=== PATIENT | male | born 1965 | race Caucasian/White ===

== ENCOUNTER 2022-10-25 01:14 | Day surgery (SDC) | payer OTHER, SELFPAY ==
[2022-10-12 09:32] VITALS: BMI 25.1
[2022-10-25 08:35] VITALS: BP 136/78; PULSE 105; RESP 18; TEMP 36.2; O2SAT 99; BMI 24.9
[2022-10-25] MEDS: LACTATED RINGERS 1,000 ML 150 ML IV CONT (08:44)
--- NOTE | 2022-10-25 08:56 | P.PNAN_ITS ---
Anes - Initial Pre Proc Eval Procedure: Operation Date: 10/25/22 09:45 Proposed Procedures p Esophagogastroduodenoscopy - Esteban Cintron MD Date/Time: 10/25/22 08:56 Surgeon: Esteban Cintron MD Pre Op Diagnosis: dysphagia Patient Data Age: 57 Gender: M Height: 1.83 m Weight: 83.4 kg Last Vital Signs Temp 36.2 C L 10/25/22 08:35 Pulse 105 H 10/25/22 08:35 Resp 18 10/25/22 08:35 BP 136/78 10/25/22 08:35 Pulse Ox 99 10/25/22 08:35 O2 Del Method Room Air 10/25/22 08:35 Allergies Allergy/AdvReac Type Severity Reaction Status Date / Time No Known Allergies Allergy Unknown Verified 10/12/22 09:29 Home Medications Medication Instructions Recorded Confirmed Type amlodipine 10 mg tablet 10 mg PO DAILY 10/12/22 10/12/22 History atorvastatin 40 mg tablet 40 mg PO DAILY 10/12/22 10/12/22 History lisinopril 20 mg tablet 20 mg PO DAILY 10/12/22 10/12/22 History Patient hx anesthesia problems: none Family hx anesthesia problems: none Results Review: All pre-operative results and documents have been reviewed as part of the pre- operative evaluation. [facility], [facility] Past Medical History Medical History (Updated 10/25/22 @ 08:56 by Norm Espino MD) Chronic GERD HTN (hypertension) Family History Family History (Updated 02/18/16 @ 23:21 by DOCTOR UNKNOWN) Mother Patient's mother is in good health Family history of arthritis Father Patient's father is in good health Family history of Alzheimer's disease Social History Social History Smoking status: Never smoker Alcohol intake: current Alcohol use details: on occasion Substance use: never Substance use type: does not use Living arrangements: with family Spiritual care concerns: No Anes - Eval Final PreProcedure Day of Procedure 10/25/22 08:56 Patient weight: normal Heart: regular rate and rhythm Lungs: clear to auscultation and normal air movement Airway: Mallampati scale class II Neurological: alert and oriented Last oral intake: >/= 8 hours ASA classification: II Emergent: no Anesthetic plan: proceed Anesthesia type and monitoring: general GIVS Results Review: All pre-operative results and documents have been reviewed as part of the pre- operative evaluation. Informed Consent: The patient's anesthetic plan and its attendant risks and benefits were discussed with the patient/family/POA. Questions were solicited and answers provided to the satisfaction of the patient/family/POA.
--- NOTE | 2022-10-25 09:29 | PM.HPGS ---
History of Present Illness History of Present Illness Consent: Risks, benefits, and alternatives have been discussed and questions answered. Patient agrees to proceed with procedure. Chief complaint: dysphagia Narrative: Jonathan Fishman is a 57 year old male with dysphagia after eating, worse last 4 months. Had EGD about 10 years ago Review of Systems Constitutional: Constitutional: Denies headache(s) and Denies weakness Eyes: Eyes: Denies blurry vision ENT: Reports Normal hearing present, Denies headache(s) and Denies neck pain Cardiovascular: Cardiovascular: Denies chest pain and Denies dyspnea Respiratory: Respiratory: Denies dyspnea Gastrointestinal: Gastrointestinal: Reports no additional gastrointestinal complaints Genitourinary: Genitourinary: Denies dysuria Musculoskeletal: Musculoskeletal: Denies neck pain Integumentary/Breasts: Skin/Breast: Denies dry skin Neurologic: Reports Normal hearing present, Denies headache(s) and Denies weakness Psychiatric: Psychiatric: Denies anxiety Endocrine: Endocrine: Denies change in body appearance Hematologic/Lymphatic: Hematologic/Lymphatic: Denies easy bleeding Allergic/Immunologic: Allergic/Immunologic: Denies urticaria PMFSH Past Medical History Medical History (Updated 10/25/22 @ 09:30 by Esteban Cintron MD) Chronic GERD Dysphagia HTN (hypertension) Family History Family History (Updated 02/18/16 @ 23:21 by DOCTOR UNKNOWN) Mother Patient's mother is in good health Family history of arthritis Father Patient's father is in good health Family history of Alzheimer's disease Social History Social History Smoking status: Never smoker Alcohol intake: current Alcohol use details: on occasion Substance use: never Substance use type: does not use Living arrangements: with family Spiritual care concerns: No Meds Home Medications and Allergies Home Medications Medication Instructions Recorded Confirmed Type amlodipine 10 mg tablet 10 mg PO DAILY 10/12/22 10/12/22 History atorvastatin 40 mg tablet 40 mg PO DAILY 10/12/22 10/12/22 History lisinopril 20 mg tablet 20 mg PO DAILY 10/12/22 10/12/22 History Allergies Allergy/AdvReac Type Severity Reaction Status Date / Time No Known Allergies Allergy Unknown Verified 10/12/22 09:29 Vital Signs Vital Signs - 24 hr 10/25/22 08:35 Temperature 97.1 F L Pulse Rate 105 H Respiratory Rate 18 Blood Pressure 136/78 Pulse Oximetry 99 Oxygen Delivery Room Air Exam Const: General: comfortable and no acute distress HENMT: Face/Nose/Sinus: Normal nares present Eyes: General: appearance normal, both eyes and all related structures Neck: Neck: no JVD Resp: Auscultation: clear to auscultation bilaterally Cardio: Rate: regular rate Rhythm: regular rhythm GI: Inspection: non-distended GI Palp: Yes Soft to palpation Skin: General skin exam: normal color Neuro: General: gait normal Speech: normal speech Extrem: General: normal to inspection Psych: Mental Status: mental status grossly normal Assessment and Plan Assessment and plan (1) Dysphagia: Code(s): R13.10 - Dysphagia, unspecified Status: Acute Assessment and Plan: egd
[2022-10-25 09:48] VITALS: BP 104/70; PULSE 91; RESP 17; O2SAT 95
[2022-10-25 09:58] VITALS: BP 103/69; PULSE 85; RESP 21; O2SAT 95
[2022-10-25 10:08] VITALS: BP 115/78; PULSE 83; RESP 20; O2SAT 97
== END 2022-10-25 10:43 | disposition home or self-care (01) ==
PROVIDERS: PCP Family Medicine; Visit Provider Internal Medicine Gastroenterology
PROC: 0DJ08ZZ Inspection of Upper Intestinal Tract, Via Natural or Artificial Opening Endoscopic (ICD-10-PCS; CPT 43235; principal; 2022-10-25 09:45)
DX: K22.2 Esophageal obstruction (principal); K21.00 Gastro-esophageal reflux disease with esophagitis, without bleeding; K44.9 Diaphragmatic hernia without obstruction or gangrene; I10 Essential (primary) hypertension
CPT/HCPCS: 43249; 43239; 88305; C1726; J2001; J2704; J7120

== ENCOUNTER 2023-02-28 01:43 | Day surgery (SDC) | payer OTHER, SELFPAY ==
[2023-02-19 15:09] VITALS: BMI 26.0
[2023-02-28 06:15] VITALS: BP 139/86; PULSE 85; RESP 18; TEMP 36.4; O2SAT 100; BMI 25.4
[2023-02-28] MEDS: LACTATED RINGERS 1,000 ML 150 ML IV CONT (06:36)
--- NOTE | 2023-02-28 07:24 | P.PNAN_ITS ---
Anes - Initial Pre Proc Eval Procedure: Operation Date: 02/28/23 07:30 Proposed Procedures p Esophagogastroduodenoscopy EGD - Esteban Cintron MD Date/Time: 02/28/23 07:24 Surgeon: Esteban Cintron MD Pre Op Diagnosis: esophageal ring Patient Data Age: 57 Gender: M Height: 1.83 m Weight: 85 kg Last Vital Signs Temp 97.6 F 02/28/23 06:15 Pulse 85 02/28/23 06:15 Resp 18 02/28/23 06:15 BP 139/86 02/28/23 06:15 Pulse Ox 100 02/28/23 06:15 O2 Del Method Room Air 02/28/23 06:15 Allergies Allergy/AdvReac Type Severity Reaction Status Date / Time No Known Allergies Allergy Unknown Verified 02/28/23 06:25 Home Medications Medication Instructions Recorded Confirmed Type amlodipine 10 mg tablet 10 mg PO DAILY 10/12/22 02/28/23 History atorvastatin 40 mg tablet 40 mg PO DAILY 10/12/22 02/28/23 History lisinopril 20 mg tablet 20 mg PO DAILY 10/12/22 02/28/23 History omeprazole 40 mg capsule,delayed 40 mg PO DAILY #30 caps 10/25/22 02/28/23 Rx release Patient hx anesthesia problems: none Family hx anesthesia problems: none Results Review: All pre-operative results and documents have been reviewed as part of the pre- operative evaluation. [facility] Past Medical History Medical History (Updated 10/25/22 @ 09:30 by Esteban Cintron MD) Chronic GERD Dysphagia HTN (hypertension) Family History Family History (Updated 02/18/16 @ 23:21 by DOCTOR UNKNOWN) Mother Patient's mother is in good health Family history of arthritis Father Patient's father is in good health Family history of Alzheimer's disease Social History Social History Smoking status: Never smoker Alcohol intake: current Drinks per week: 2 Alcohol use details: on occasion Substance use: never Substance use type: does not use Living arrangements: with family Spiritual care concerns: No Anes - Eval Final PreProcedure Day of Procedure 02/28/23 07:24 Patient weight: normal Heart: regular rate and rhythm Lungs: clear to auscultation Airway: Mallampati scale class II Neurological: alert and oriented Last oral intake: >/= 8 hours ASA classification: II Emergent: no Anesthetic plan: proceed Anesthesia type and monitoring: general GIVS and standard monitoring Results Review: All pre-operative results and documents have been reviewed as part of the pre- operative evaluation. Informed Consent: The patient's anesthetic plan and its attendant risks and benefits were discussed with the patient/family/POA. Questions were solicited and answers provided to the satisfaction of the patient/family/POA.
--- NOTE | 2023-02-28 07:27 | PM.HPGS ---
History of Present Illness History of Present Illness Consent: Risks, benefits, and alternatives have been discussed and questions answered. Patient agrees to proceed with procedure. Chief complaint: esophageal ring Narrative: Jonathan Fishman is a 57 year old male who presented initially with dysphagia, egd found ring with esophagitis, much better after dilatation and here to reassess, still using ppi Review of Systems Constitutional: Constitutional: Denies headache(s) and Denies weakness Eyes: Eyes: Denies blurry vision ENT: Reports Normal hearing present, Denies headache(s) and Denies neck pain Cardiovascular: Cardiovascular: Denies chest pain and Denies dyspnea Respiratory: Respiratory: Denies dyspnea Gastrointestinal: Gastrointestinal: Reports no additional gastrointestinal complaints Genitourinary: Genitourinary: Denies dysuria Musculoskeletal: Musculoskeletal: Denies neck pain Integumentary/Breasts: Skin/Breast: Denies dry skin Neurologic: Reports Normal hearing present, Denies headache(s) and Denies weakness Psychiatric: Psychiatric: Denies anxiety Endocrine: Endocrine: Denies change in body appearance Hematologic/Lymphatic: Hematologic/Lymphatic: Denies easy bleeding Allergic/Immunologic: Allergic/Immunologic: Denies urticaria PMFSH Past Medical History Medical History (Updated 10/25/22 @ 09:30 by Esteban Cintron MD) Chronic GERD Dysphagia HTN (hypertension) Family History Family History (Updated 02/18/16 @ 23:21 by DOCTOR UNKNOWN) Mother Patient's mother is in good health Family history of arthritis Father Patient's father is in good health Family history of Alzheimer's disease Social History Social History Smoking status: Never smoker Alcohol intake: current Drinks per week: 2 Alcohol use details: on occasion Substance use: never Substance use type: does not use Living arrangements: with family Spiritual care concerns: No Meds Home Medications and Allergies Home Medications Medication Instructions Recorded Confirmed Type amlodipine 10 mg tablet 10 mg PO DAILY 10/12/22 02/28/23 History atorvastatin 40 mg tablet 40 mg PO DAILY 10/12/22 02/28/23 History lisinopril 20 mg tablet 20 mg PO DAILY 10/12/22 02/28/23 History omeprazole 40 mg capsule,delayed 40 mg PO DAILY #30 caps 10/25/22 02/28/23 Rx release Allergies Allergy/AdvReac Type Severity Reaction Status Date / Time No Known Allergies Allergy Unknown Verified 02/28/23 06:25 Vital Signs Vital Signs - 24 hr 02/28/23 06:15 Temperature 97.6 F Pulse Rate 85 Respiratory Rate 18 Blood Pressure 139/86 Pulse Oximetry 100 Oxygen Delivery Room Air Exam Const: General: comfortable and no acute distress HENMT: Face/Nose/Sinus: Normal nares present Eyes: General: appearance normal, both eyes and all related structures Neck: Neck: no JVD Resp: Auscultation: clear to auscultation bilaterally Cardio: Rate: regular rate Rhythm: regular rhythm GI: Inspection: non-distended GI Palp: Yes Soft to palpation Skin: General skin exam: normal color Neuro: General: gait normal Speech: normal speech Extrem: General: normal to inspection Psych: Mental Status: mental status grossly normal Assessment and Plan Assessment and plan (1) Dysphagia: Code(s): R13.10 - Dysphagia, unspecified Status: Acute Assessment and Plan: singnificantly improved (2) Chronic GERD: Code(s): K21.9 - Gastro-esophageal reflux disease without esophagitis Status: Acute Assessment and Plan: egd, better
[2023-02-28 07:42] VITALS: BP 98/64; PULSE 82; RESP 20; O2SAT 97
[2023-02-28 07:52] VITALS: BP 113/76; PULSE 73; RESP 19; O2SAT 98
[2023-02-28 08:02] VITALS: BP 114/80; PULSE 71; RESP 18; O2SAT 99
== END 2023-02-28 08:11 | disposition home or self-care (01) ==
PROVIDERS: PCP Family Medicine; Visit Provider Internal Medicine Gastroenterology
PROC: 0DJ08ZZ Inspection of Upper Intestinal Tract, Via Natural or Artificial Opening Endoscopic (ICD-10-PCS; CPT 43235; principal; 2023-02-28 07:30)
DX: K22.2 Esophageal obstruction (principal); K44.9 Diaphragmatic hernia without obstruction or gangrene; K21.9 Gastro-esophageal reflux disease without esophagitis; I10 Essential (primary) hypertension
CPT/HCPCS: 43249; C1726; J2704; J7120